=== PATIENT | female | born 1950 | race Caucasian/White ===

== ENCOUNTER → 2017-01-02 | Outpatient (CLI) | payer BC ==
[2017-01-02 15:17] VITALS: BP 144/80; PULSE 65; RESP 14; TEMP 98.2; BMI 26.4
--- NOTE | 2017-01-02 16:00 | P.HPBAR ---
Bariatric H&P - History & Physicial H&P Date: 01/02/17 History & Physicial: Visit/CC: sleeve f/u Patient initial contact: Initial weight: 95.254 kg Initial weight in pounds: 210.00 Height: 5 ft Initial BMI: 41.0 Last weight: Current weight: 61.416 kg Current weight in pounds: 135.40 Current BMI: 26.4 [place] body weight (based on NIH guidelines): 45.359 kg Excess body weight loss: 67.8% The patient is a 66 year-old F who presents for Bariatric Assessment. Patient presents today for sleeve gastric a fall. She's not been seen for prostate 3 years. She states she has some mild GERD. Past Medical History Past Medical History: GERD/Reflux, Hypertension, Thyroid Disorder Additional Past Medical History / Comment(s): seasonal allergies (indoor/outdoor ), hypokalemia History of Any Multi-Drug Resistant Organisms: None Reported Past Surgical History: Bariatric Surgery, Cholecystectomy, Hysterectomy Additional Past Surgical History / Comment(s): band placed in 2006 (removed when converted to sleeve in 2013) at [facility]. Past Anesthesia/Blood Transfusion Reactions: Postoperative Nausea & Vomiting ( PONV) Past Psychological History: No Psychological Hx Reported Smoking Status: Never smoker Past Alcohol Use History: Rare Past Drug Use History: None Reported - Past Family History Mother Family Medical History: Coronary Artery Disease (CAD), Hypertension Father Family Medical History: Coronary Artery Disease (CAD), Hypertension Surgical - Exam Vital Signs Temp Pulse Resp BP 98.2 F 65 14 144/80 01/02/17 15:13 01/02/17 15:13 01/02/17 15:13 01/02/17 15:13 - General well developed, no distress - Eyes PERRL - ENT normal pinna - Neck no masses - Respiratory normal expansion - Cardiovascular Rhythm: regular - Abdomen Abdomen: soft, non tender Bariatric Assessment & Plan Plan: The patient is a well status post sleeve yesterday. Her weight has remained stable. Her GERD symptoms are minimal and will be observed. She'll follow-up in 2-3 months. Bariatric Checklist Checklist: Plan: Checklist: EGD: 1. Hiatal hernia: 2. H. Pylori: HgbA1c: Vitamin D: Smoking: Never smoker Primary care physician referral: Donovan Carolspencer Randhawa) Psychiatry clearance: Cardiology clearance: Sleep study: Diet journal: VTE risk score: VTE risk level: Rehab needs at discharge:
== END | disposition home or self-care (01) ==
LOC: BARWHC3 13:40
PROVIDERS: ATTEND Surgery
DX: Z48.815 Encounter for surgical aftercare following surgery on the digestive system (principal); K21.9 Gastro-esophageal reflux disease without esophagitis; Z68.26 Body mass index [BMI] 26.0-26.9, adult; Z98.84 Bariatric surgery status
CPT/HCPCS: 99201

== ENCOUNTER → 2017-01-06 | Outpatient (CLI) | payer BC ==
[2017-01-06 16:41] LABS: CH 30.4; CHCM 32.4; HCT 41.8 % (34.0-46.0); HDW 2.43; HGB 13.2 gm/dL (11.4-16.0); MCHC 31.7 g/dL (31.0-37.0); MCV 94.5 fL (80.0-100.0); Mean Platelet Volume 7.7; RBC 4.42 m/uL (3.80-5.40); RDW 13.3 % (11.5-15.5); WBC 5.4 k/uL (3.8-10.6)
[2017-01-06 16:45] LABS: ALT 28 U/L (9-52); AST 18 U/L (14-36); Alkaline Phosphatase 36 U/L (38-126); Anion Gap 11 mmol/L; Blood Urea Nitrogen 14 mg/dL (7-17); Calcium 9.1 mg/dL (8.4-10.2); Carbon Dioxide 24 mmol/L (22-30); Chloride 108 mmol/L (98-107); Glucose 96 mg/dL (74-99); Magnesium 2.1 mg/dL (1.6-2.3); Non-African American GFR(MDRD) >60 (>60 ml/min/1.73 sqM); Phosphorous 2.9 mg/dL (2.5-4.5); Potassium 3.6 mmol/L (3.5-5.1); Sodium 143 mmol/L (137-145); Total Bilirubin 0.4 mg/dL (0.2-1.3); Total Protein 6.5 g/dL (6.3-8.2)
[2017-01-06 16:52] LABS: Prealbumin 32 mg/dL (18-36)
[2017-01-06 17:51] LABS: Vitamin B12 277 pg/mL (239-931)
== END ==
LOC: LABWHC1 15:42
PROVIDERS: ATTEND Surgery
DX: Z48.815 Encounter for surgical aftercare following surgery on the digestive system (principal); E66.01 Morbid (severe) obesity due to excess calories; E44.0 Moderate protein-calorie malnutrition; E55.9 Vitamin D deficiency, unspecified; Z98.84 Bariatric surgery status
CPT/HCPCS: 36415; 80053; 82306; 82525; 82607; 82746; 83735; 84100; 84134; 84425; 84443; 84590; 85027

== ENCOUNTER → 2023-06-26 | Outpatient (CLI) | payer MEDICARE, BC | END | disposition home or self-care (01) | LOC: RADUSWWP 14:30 | PROVIDERS: ATTEND Surgery | DX: Z53.9 Procedure and treatment not carried out, unspecified reason (principal) ==

== ENCOUNTER → 2023-06-26 | Outpatient (CLI) | payer MEDICARE, BC ==
[2023-06-26 14:14] VITALS: BP 125/75; PULSE 74; TEMP 97.8; BMI 30.8
--- NOTE | 2023-06-26 14:51 | FL ---
EXAMINATION TYPE: FL barium swallow DATE OF EXAM: 06/26/2023 CLINICAL HISTORY: Status post gastric sleeve fl time 28 seconds 4 oz ez paque The patient ingested contrast without difficulty or delay. Noted are postsurgical changes of gastric sleeve. Contrast is seen to flow through the postoperative stomach into the duodenum. There is a sli ding-type hiatal hernia noted. IMPRESSION: Post-surgical change of gastric sleeve without evidence for obstruction. Sliding-type hi atal hernia small in size.
--- NOTE | 2023-07-12 09:07 | P.HPBAR ---
Bariatric H&P - History & Physicial H&P Date: 06/26/23 History & Physicial: Visit/CC: gastric sleeve F/U Patient initial contact: Initial weight: 95.254 kg Initial weight in pounds: 210.00 Height: 5 ft Initial BMI: 41.0 Last weight: Current weight: 71.668 kg Current weight in pounds: 158.00 Current BMI: 30.8 [place] body weight (based on NIH guidelines): 45.359 kg Excess body weight loss: 47.2% The patient is a 73 year-old F who presents for Bariatric Assessment. Patient resents A for bariatric follow-up. She's not been seen several years. She has complaints of some GERD and mild dysphagia. Past Medical History Past Medical History: Cancer, GERD/Reflux, Hypertension, Thyroid Disorder Additional Past Medical History / Comment(s): seasonal allergies (indoor/outdoor), hypokalemia, skin ca- squamous cell History of Any Multi-Drug Resistant Organisms: None Reported Past Surgical History: Bariatric Surgery, Cholecystectomy, Hysterectomy Additional Past Surgical History / Comment(s): band placed in 2006 (removed when converted to sleeve in 2013) at [facility]. skin cancer removed Past Anesthesia/Blood Transfusion Reactions: Postoperative Nausea & Vomiting (PONV) Past Psychological History: No Psychological Hx Reported Smoking Status: Never smoker Past Alcohol Use History: Rare Past Drug Use History: None Reported - Past Family History Mother Family Medical History: Coronary Artery Disease (CAD), Hypertension Father Family Medical History: Coronary Artery Disease (CAD), Hypertension Surgical - Exam Vital Signs Temp Pulse BP 97.8 F 74 125/75 06/26/23 14:07 06/26/23 14:07 06/26/23 14:07 - General well developed, well nourished, no distress - Eyes PERRL - ENT normal pinna - Neck no masses - Cardiovascular Rhythm: regular - Abdomen Abdomen: soft, non tender Bariatric Assessment & Plan Plan: GERD. Patient be scheduled for esophagram. She will follow-up after this is performed. Bariatric Checklist Checklist: Plan: Checklist: EGD: 1. Hiatal hernia: 2. H. Pylori: HgbA1c: Vitamin D: Smoking: Never smoker Primary care physician referral: Donovan [place]) Psychiatry clearance: Cardiology clearance: Sleep study: Diet journal: VTE risk score: VTE risk level: Rehab needs at discharge:
== END ==
LOC: BARWHC3 13:38
PROVIDERS: ATTEND Surgery
DX: K21.9 Gastro-esophageal reflux disease without esophagitis (principal); K44.9 Diaphragmatic hernia without obstruction or gangrene; Z98.84 Bariatric surgery status
CPT/HCPCS: 74220; G0463; 99211

== ENCOUNTER 2023-07-25 06:06 | Inpatient (IN) | payer MEDICARE, BC ==
[2023-07-18 15:25] VITALS: BMI 29.2
[~2023-07-25 06:06] MED LIST: DEXAMETHASONE SOD PHOSPHATE 4 MG/ML 1 ML VIAL IV ONE; LIDOCAINE 1% (10MG/ML) FOR IV START INTRADERMA PRN; ONDANSETRON 4 MG/2 ML VIAL IVP ONE
[2023-07-25] MEDS: LACTATED RINGERS 1,000 ML IV SCH (06:45)
[2023-07-25] MEDS ORDERED: HEPARIN SODIUM,PORCINE/PF 5,000 UNIT/0.5 ML SYRINGE SQ ONE (06:48)
[2023-07-25] MEDS ORDERED: MIDAZOLAM 2 MG/2 ML VIAL IV PRN (07:00)
[2023-07-25] MEDS ORDERED: fentaNYL (PF) 50 MCG/ML 2 ML AMP ONE (07:07)
[2023-07-25] MEDS ORDERED: PROPOFOL 10 MG/ML 20 ML VIAL IV ONE (07:07)
[2023-07-25] MEDS ORDERED: GLYCOPYRROLATE 0.2 MG/ML 2 ML VIAL ONE (07:07)
[2023-07-25] MEDS ORDERED: MIDAZOLAM 2 MG/2 ML VIAL ONE (07:07)
[2023-07-25] MEDS ORDERED: ePHEDrine 50 MG/ML 1 ML VIAL ONE (07:07)
[2023-07-25] MEDS ORDERED: PHENYLEPHRINE 10 MG/ML 5 ML VIAL ONE (07:07)
[2023-07-25] MEDS ORDERED: LIDOCAINE 1% INJ 10MG/ML (20 ML MDV) ONE (07:07)
[2023-07-25] MEDS ORDERED: NEOSTIGMINE 1 MG/ML 10 ML VIAL ONE (07:07)
[2023-07-25] MEDS ORDERED: ROCURONIUM 10 MG/ML (5 ML VIAL) IV ONE (07:07)
[2023-07-25] MEDS ORDERED: SUCCINYLCHOLINE CHLORIDE 200 MG/10 ML VIAL IV ONE (07:07)
--- NOTE | 2023-07-25 07:08 | P.GSHP ---
History of Present Illness H&P Date: 07/25/23 Chief Complaint: GERD, hiatal hernia Is a 73-year-old female presents today for laparoscopic hiatal hernia repair. Patient developed progressive GERD symptoms related to hiatal hernia. Past Medical History Past Medical History: Cancer, GERD/Reflux, Hypertension, Thyroid Disorder Additional Past Medical History / Comment(s): seasonal allergies, hypokalemia, skin ca- squamous cell, hiatal hernia History of Any Multi-Drug Resistant Organisms: None Reported Past Surgical History: Bariatric Surgery, Cholecystectomy, Hysterectomy Additional Past Surgical History / Comment(s): band placed in 2006 (removed when converted to sleeve in 2013), skin cancer removed Past Anesthesia/Blood Transfusion Reactions: Postoperative Nausea & Vomiting (PONV) Past Psychological History: No Psychological Hx Reported Smoking Status: Never smoker Past Alcohol Use History: Occasional Past Drug Use History: None Reported - Past Family History Mother Family Medical History: Coronary Artery Disease (CAD), Hypertension Father Family Medical History: Coronary Artery Disease (CAD), Hypertension Sister(s) Family Medical History: Deep Vein Thrombosis (DVT) Medications and Allergies Home Medications Medication Instructions Recorded Confirmed Type Fluticasone Nasal [place] [Flonase 1 spray EA NOSTRIL BID 01/02/17 07/18/23 History Nasal [place]] Levothyroxine Sodium [Synthroid] 88 mcg PO DAILY 01/02/17 07/18/23 History Metoprolol Succinate (ER) [Toprol 50 mg PO DAILY 01/02/17 07/18/23 History Xl] Potassium Chloride [Klor-Con 10] 2 tab PO DAILY 01/02/17 07/18/23 History amLODIPine [Norvasc] 10 mg PO DAILY 01/02/17 07/18/23 History Famotidine [Zantac-360 10 mg PO DAILY 06/26/23 07/18/23 History (Famotidine)] Ferrous Sulfate [Feosol] 325 mg PO DAILY 06/26/23 07/18/23 History Multivitamins, Thera [Multivitamin 1 tab PO DAILY 06/26/23 07/18/23 History (formulary)] PARoxetine [Paxil] 10 mg PO DAILY 06/26/23 07/18/23 History guaiFENesin [Mucinex] 600 mg PO Q12H PRN 06/26/23 07/18/23 History Calcium Carbonate [Calcium] 600 mg PO DAILY 07/18/23 07/18/23 History Nf-Aygestin 1 tab PO DAILY 07/18/23 07/18/23 History Omeprazole [PriLOSEC] 20 mg PO AC-BRKFST 07/18/23 07/18/23 History hydroCHLOROthiazide [Hydrodiuril] 25 mg PO DAILY 07/18/23 07/18/23 History Allergies Allergy/AdvReac Type Severity Reaction Status Date / Time No Known Allergies Allergy Verified 07/18/23 14:59 Surgical - Exam Vital Signs Temp Pulse Resp BP Pulse Ox 97.9 F 75 16 141/80 97 07/25/23 06:44 07/25/23 06:44 07/25/23 06:44 07/25/23 06:44 07/25/23 06:44 - General well developed, well nourished, no distress - Eyes PERRL - ENT normal pinna, normal nares - Neck no masses - Cardiovascular Rhythm: regular - Abdomen Abdomen: soft, non tender Assessment and Plan Assessment: Hiatal hernia GERD We'll perform laparoscopic repair of hiatal hernia.
[2023-07-25] MEDS ORDERED: BUPIVACAINE (PF) 0.5% 30 ML VIAL SQ ONE (07:42)
[2023-07-25] MEDS ORDERED: LACTATED RINGERS 1,000 ML IV ONE ×2 (08:20→11:31)
[2023-07-25] MEDS ORDERED: ONDANSETRON 4 MG/2 ML VIAL IVP PRN (08:37)
[2023-07-25] MEDS ORDERED: HYDROmorphone 1 MG/ML 1 ML SYRINGE IVP PRN (08:37)
--- NOTE | 2023-07-25 09:02 | P.OP ---
Date of Procedure: 07/25/23 Preoperative Diagnosis: GERD Paraesophageal hernia Postoperative Diagnosis: Paraesophageal hiatal hernia Procedure(s) Performed: Laparoscopic paraesophageal hiatal hernia repair with mesh Transverse abdominal pain block Anesthesia: HUSSEIN Surgeon: Rudolph Tee Estimated Blood Loss (ml): 10 Pathology: none sent Condition: stable Disposition: PACU Description of Procedure: The patient was placed on the operating table in the supine position. She received general anesthesia. She was then placed in dorsal lithotomy position. Her abdomen was prepped and draped in the usual sterile fashion. The skin incision sites were anesthetized with 1% local Xylocaine. The skin was incised in the left periumbilical area with an 11 scalpel. Using a 5 mm blade was trocar under direct visitation the peritoneal cavity was entered. And then insufflated. After adequate insufflation the laparoscope was placed back into the peritoneal cavity. Next a 5 mm trocar was placed in the right epigastric and then the right lateral position. Another 5 mm trochars placed in the left lateral position. Another 5 mm trocar placed in the left epigastric position. And the original left periumbilical trocar was exchanged for a 10 mm trocar. A four-quadrant transversus abdominis plane block was then performed with percent local Xylocaine. The left lateral lobe liver was retracted. The patient had a large hiatal hernia. Using the Harmonic scissors the crural defect was dissected in the Harmonic scissors were used to dissect the hiatal hernia sac. The patient had a previous sleeve gastrectomy. Approximately one third of the stomach was in the hiatal hernia. The crura was dissected with the Harmonic scissors. And then the crural repair was performed using 2-0 Ethibond suture. The [place] bio A mesh was then placed over top of the repair and secured with 2-0 Ethibond suture. Next a 58-Armenian bougie dilator was placed the patient's oral pharynx and into the esophagus into the stomach by the LOG HANDLING EQUIPMENT OPERATOR. The fundoplication was then performed using 2-0 Ethibond suture. A. The stomach and esophagus were inspected there is known to any injury to the stomach or esophagus. The abdomen was irrigated there is no bleeding seen. The trochars are withdrawn. Skin was closed interrupted 3-0 Monocryl suture. Dermabond was applied. Patient tolerated procedure well and was sent to recovery in stable condition.
[2023-07-25] MEDS: HYDROmorphone 0.5 MG/0.5 ML SYRINGE IVP PRN ×2 (09:56→18:39)
[2023-07-25] MEDS: D5-0.45% NACL WITH KCL 20MEQ/L 1,000 ML IV SCH (16:41)
[2023-07-25 19:45] VITALS: RESP 18
[2023-07-26] MEDS: D5-0.45% NACL WITH KCL 20MEQ/L 1,000 ML IV SCH ×2 (00:03→07:33)
[2023-07-26] MEDS: LACTATED RINGERS 1,000 ML IV SCH (05:03)
[2023-07-26] MEDS ORDERED: LEVOTHYROXINE 88 MCG TAB PO SCH (06:30)
[2023-07-26] MEDS ORDERED: HYDROcodone/APAP 5-325MG 1 EACH TAB PO PRN (08:05)
[2023-07-26] MEDS ORDERED: ACETAMINOPHEN TAB 325 MG TAB PO PRN (08:06)
[2023-07-26 08:51] VITALS: TEMP 98.3
[2023-07-26] MEDS ORDERED: FLUTICASONE 50MCG/SPRAY NASAL 16GM EA NOSTRIL SCH (09:00)
[2023-07-26] MEDS ORDERED: METOPROLOL SUCCINATE (ER) 50 MG TAB.ER.24H PO SCH (09:00)
[2023-07-26] MEDS ORDERED: PARoxetine 10 MG TAB PO SCH (09:00)
[2023-07-26] MEDS ORDERED: PANTOPRAZOLE 40 MG/10 ML VIAL IVP SCH (09:00)
[2023-07-26] MEDS ORDERED: ENOXAPARIN 40 MG/0.4 ML SYRINGE SQ SCH (09:00)
[2023-07-26] MEDS ORDERED: MULTIVITAMINS, THERA 1 EACH TAB PO SCH (09:00)
[2023-07-26] MEDS ORDERED: FERROUS SULFATE 325 MG TAB PO SCH (09:00)
--- NOTE | 2023-07-26 10:29 | P.CONS ---
History of Present Illness - Reason for Consult Perioperative hypotension - History of Present Illness The patient is a pleasant 73-year-old female admitted for laparoscopic hiatal hernia repair patient is clinically doing well no nausea no vomiting. Patient is bit hypotensive which is expected post surgery patient is on Norvasc which is being continued patient is also on hydrocodone thiazide which is being held at this time and patient was asked to hold this medication unless blood pressure goes up at home and take potassium along with hydrochlorothiazide. Otherwise patient is clinically doing well and can be discharged home. REVIEW OF SYSTEMS: CONSTITUTIONAL: No fever, no malaise, no fatigue. HEENT: No recent visual problems or hearing problems. Denied any sore throat. CARDIOVASCULAR: No chest pain, orthopnea, PND, no palpitations, no syncope. PULMONARY: No shortness of breath, no cough, no hemoptysis. GASTROINTESTINAL: No diarrhea, no nausea, no vomiting, no abdominal pain. NEUROLOGICAL: No headaches, no weakness, no numbness. HEMATOLOGICAL: Denies any bleeding or petechiae. GENITOURINARY: Denies any burning micturition, frequency, or urgency. MUSCULOSKELETAL/RHEUMATOLOGICAL: Denies any joint pain, swelling, or any muscle pain. ENDOCRINE: Denies any polyuria or polydipsia. The rest of the 14-point review of systems is negative. PHYSICAL EXAMINATION: GENERAL: The patient is alert and oriented x3, not in any acute distress. Well developed, well nourished. HEENT: Pupils are round and equally reacting to light. EOMI. No scleral icterus. No conjunctival pallor. Normocephalic, atraumatic. No pharyngeal erythema. No thyromegaly. CARDIOVASCULAR: S1 and S2 present. No murmurs, rubs, or gallops. PULMONARY: Chest is clear to auscultation, no wheezing or crackles. ABDOMEN: Soft, nontender, nondistended, normoactive bowel sounds. No palpable organomegaly. MUSCULOSKELETAL: No joint swelling or deformity. EXTREMITIES: No cyanosis, clubbing, or pedal edema. NEUROLOGICAL: Gross neurological examination did not reveal any focal deficits. SKIN: No rashes. Assessment and plan -Perioperative hypotension which is expected post surgery: Blood pressure medication management as mentioned above. -Paraesophageal hernia repair: Pain management and DVT prophylaxis as per primary service -Hypothyroidism: Continue with levothyroxine Patient can be discharged from medical perspective Past Medical History Past Medical History: Cancer, GERD/Reflux, Hypertension, Thyroid Disorder Additional Past Medical History / Comment(s): seasonal allergies, hypokalemia, skin ca- squamous cell, hiatal hernia History of Any Multi-Drug Resistant Organisms: None Reported Past Surgical History: Bariatric Surgery, Cholecystectomy, Hysterectomy Additional Past Surgical History / Comment(s): band placed in 2006 (removed when converted to sleeve in 2013), skin cancer removed, laprascopic hiatal hernia repair 07/25/[address] damon Past Anesthesia/Blood Transfusion Reactions: Postoperative Nausea & Vomiting (PONV) Past Psychological History: No Psychological Hx Reported Smoking Status: Never smoker Past Alcohol Use History: Occasional Past Drug Use History: None Reported - Past Family History Mother Family Medical History: Coronary Artery Disease (CAD), Hypertension Father Family Medical History: Coronary Artery Disease (CAD), Hypertension Sister(s) Family Medical History: Deep Vein Thrombosis (DVT) Medications and Allergies Home Medications Medication Instructions Recorded Confirmed Type Fluticasone Nasal [place] [Flonase 1 spray EA NOSTRIL BID 01/02/17 07/18/23 History Nasal [place]] Levothyroxine Sodium [Synthroid] 88 mcg PO DAILY 01/02/17 07/18/23 History Metoprolol Succinate (ER) [Toprol 50 mg PO DAILY 01/02/17 07/18/23 History Xl] Potassium Chloride [Klor-Con 10] 2 tab PO DAILY 01/02/17 07/18/23 History amLODIPine [Norvasc] 10 mg PO DAILY 01/02/17 07/18/23 History Famotidine [Zantac-360 10 mg PO DAILY 06/26/23 07/18/23 History (Famotidine)] Ferrous Sulfate [Feosol] 325 mg PO DAILY 06/26/23 07/18/23 History Multivitamins, Thera [Multivitamin 1 tab PO DAILY 06/26/23 07/18/23 History (formulary)] PARoxetine [Paxil] 10 mg PO DAILY 06/26/23 07/18/23 History guaiFENesin [Mucinex] 600 mg PO Q12H PRN 06/26/23 07/18/23 History Calcium Carbonate [Calcium] 600 mg PO DAILY 07/18/23 07/18/23 History Nf-Aygestin 1 tab PO DAILY 07/18/23 07/18/23 History Omeprazole [PriLOSEC] 20 mg PO AC-BRKFST 07/18/23 07/18/23 History hydroCHLOROthiazide [Hydrodiuril] 25 mg PO DAILY 07/18/23 07/18/23 History Allergies Allergy/AdvReac Type Severity Reaction Status Date / Time No Known Allergies Allergy Verified 07/18/23 14:59 Physical Exam Vitals: Vital Signs Temp Pulse Pulse Pulse Resp BP BP 07/26/23 07:40 98.3 F 55 L 18 07/26/23 00:10 99.1 F 73 18 122/69 07/25/23 20:00 80 73 18 07/25/23 18:53 98.7 F 74 18 121/73 07/25/23 14:31 97.8 F 71 16 134/64 07/25/23 13:04 80 16 129/71 07/25/23 12:34 76 16 123/66 07/25/23 12:04 71 16 128/68 07/25/23 11:34 69 12 123/70 07/25/23 11:04 71 12 119/66 07/25/23 10:34 69 12 117/65 BP Pulse Ox 07/26/23 07:40 128/75 96 07/26/23 00:10 92 L 07/25/23 20:00 07/25/23 18:53 94 L 07/25/23 14:31 93 L 07/25/23 13:04 94 L 07/25/23 12:34 94 L 07/25/23 12:04 94 L 07/25/23 11:34 93 L 07/25/23 11:04 93 L 07/25/23 10:34 95 Intake and Output 07/25/23 07/26/23 07/26/23 22:59 06:59 14:59 Intake Total 400 Balance 400 Intake: Oral 400 Other: Voiding Method Toilet # Voids 2 2
[2023-07-26] MEDS ORDERED: amLODIPine 10 MG TAB PO SCH (10:30)
[2023-07-26 11:44] VITALS: BP 124/67; PULSE 63
== END 2023-07-26 12:45 | disposition home or self-care (01) | DRG 328 ==
LOC: OR 06:06 → 5NMEDONC 08:25 → OR 08:37
PROVIDERS: ADMIT Surgery; ATTEND Surgery
PROC: 0BUT4JZ Supplement Diaphragm with Synthetic Substitute, Percutaneous Endoscopic Approach (ICD-10-PCS; principal; 2023-07-25 07:15)
PROC: 0DV44ZZ Restriction of Esophagogastric Junction, Percutaneous Endoscopic Approach (ICD-10-PCS; principal; 2023-07-25 07:15)
DX: K44.9 Diaphragmatic hernia without obstruction or gangrene (principal); I95.9 Hypotension, unspecified; E03.9 Hypothyroidism, unspecified; K21.9 Gastro-esophageal reflux disease without esophagitis; I10 Essential (primary) hypertension; J30.2 Other seasonal allergic rhinitis; Z85.828 Personal history of other malignant neoplasm of skin; Z79.890 Hormone replacement therapy; Z79.899 Other long term (current) drug therapy; Z98.84 Bariatric surgery status

== ENCOUNTER → 2023-08-21 | Outpatient (CLI) | payer MEDICARE, BC ==
[2023-08-21 09:50] VITALS: BP 108/74; PULSE 74; TEMP 97.7; BMI 29.0
--- NOTE | 2023-08-23 08:15 | P.HPBAR ---
Bariatric H&P - History & Physicial H&P Date: 08/21/23 History & Physicial: Visit/CC: hernia repair F/U Patient initial contact: Initial weight: 95.254 kg Initial weight in pounds: 210.00 Height: 5 ft Initial BMI: 41.0 Last weight: Current weight: 67.313 kg Current weight in pounds: 148.40 Current BMI: 29.0 [place] body weight (based on NIH guidelines): 45.359 kg Excess body weight loss: 55.9% The patient is a 73 year-old F who presents for Bariatric Assessment. Patient presents today for postoperative visit. Patient underwent recent hiatal hernia repair. Patient states her GERD and dysphagia has improved. He's lost 10 pounds since her surgery. Past Medical History Past Medical History: Cancer, GERD/Reflux, Hypertension, Thyroid Disorder Additional Past Medical History / Comment(s): seasonal allergies (i ndoor/outdoor), hypokalemia, skin ca- squamous cell History of Any Multi-Drug Resistant Organisms: None Reported Past Surgical History: Bariatric Surgery, Cholecystectomy, Hysterectomy Additional Past Surgical History / Comment(s): band placed in 2006 (removed when converted to sleeve in 2013), skin cancer removed, laprascopic hiatal hernia repair 07/25/[address] damon Past Anesthesia/Blood Transfusion Reactions: Postoperative Nausea & Vomiting (PONV) Past Psychological History: No Psychological Hx Reported Smoking Status: Never smoker Past Alcohol Use History: Rare Past Drug Use History: None Reported - Past Family History Mother Family Medical History: Coronary Artery Disease (CAD), Hypertension Father Family Medical History: Coronary Artery Disease (CAD), Hypertension Sister(s) Family Medical History: Deep Vein Thrombosis (DVT) Surgical - Exam Vital Signs Temp Pulse BP 97.7 F 74 108/74 08/21/23 09:44 08/21/23 09:44 08/21/23 09:44 - General well developed, well nourished, no distress - Eyes PERRL - ENT normal pinna - Neck no masses - Respiratory normal expansion - Cardiovascular Rhythm: regular - Abdomen Abdomen: soft, non tender Bariatric Assessment & Plan Plan: Status post repair of hiatal hernia. Patient will follow-up in 4 weeks. Bariatric Checklist Checklist: Plan: Checklist: EGD: 1. Hiatal hernia: 2. H. Pylori: HgbA1c: Vitamin D: Smoking: Never smoker Primary care physician referral: Donovan Medina (Luis A Randhawa) Psychiatry clearance: Cardiology clearance: Sleep study: Diet journal: VTE risk score: VTE risk level: Rehab needs at discharge:
== END ==
LOC: BARWHC3 09:27
PROVIDERS: ATTEND Surgery
DX: Z48.815 Encounter for surgical aftercare following surgery on the digestive system (principal); Z85.9 Personal history of malignant neoplasm, unspecified; K21.9 Gastro-esophageal reflux disease without esophagitis; I10 Essential (primary) hypertension; E07.9 Disorder of thyroid, unspecified; Z79.899 Other long term (current) drug therapy
CPT/HCPCS: 99211